=== PATIENT | male | born 1955 | race Caucasian/White ===

== ENCOUNTER 2017-03-01 12:33 | Emergency (ER) | payer OTHER, MEDICAID ==
[~2017-03-01] VITALS: Ht 177.8 cm; Wt 63.0 kg
[~2017-03-01 12:33] MED LIST: GABA-532 PO; GABA300C PO; HYDR-569 PO
[2017-03-01] MEDS ORDERED: OXYC-145 PO (12:54)
[2017-03-01] MEDS ORDERED: PENI500T2 PO (12:54)
[2017-03-01] MEDS ORDERED: oxyCODONE/APAP 10/325mg tablet PO ONE (12:55)
[2017-03-01] MEDS ORDERED: penicillin V potassium 500mg tablet PO ONE (12:55)
[2017-03-01 13:04] VITALS: BP 125/72
== END 2017-03-01 13:05 | disposition home or self-care (01) ==
LOC: ER 12:33
DX: K08.89 Other specified disorders of teeth and supporting structures (principal); G89.29 Other chronic pain; Z85.47 Personal history of malignant neoplasm of testis; Z88.6 Allergy status to analgesic agent; Z87.11 Personal history of peptic ulcer disease; Z98.890 Other specified postprocedural states
CPT/HCPCS: 99283

== ENCOUNTER 2020-11-03 16:14 | Emergency (ER) | payer OTHER, MEDICAID ==
[~2020-11-03] VITALS: Ht 177.8 cm; Wt 63.0 kg
[~2020-11-03 16:14] MED LIST changes: +HYDR-4383 PO; -HYDR-569 PO; +OXYC-145 PO
[2020-11-03 16:55] LABS: BASOPHILS % (AUTO) 0.5 % (0-1); EOSINOPHILS % (AUTO) 0.3 % (0-6); HEMOGLOBIN 14.6 g/dl (14.0-17.9); LYMPHOCYTES # (AUTO) 1.3 X10'3 (1.1-4.8); LYMPHOCYTES % (AUTO) 15.9 % (21-51); MEAN CORPUSCULAR HEMOGLOBIN 35.8 PG (27.0-31.0); MEAN CORPUSCULAR HGB CONC 32.4 g/dL (33.0-36.5); MEAN CORPUSCULAR VOLUME 110.4 FL (78-98); MEAN PLATELET VOLUME 8.3 FL (7.4-10.4); MONOCYTES # (AUTO) 0.4 X10'3 (0-0.9); MONOCYTES % (AUTO) 5.1 % (2-12); NEUTROPHILS # (AUTO) 6.3 X10'3 (1.8-7.7); NEUTROPHILS % (AUTO) 78.2 % (42-75); PLATELET COUNT 215 X10'3 (140-440); RED BLOOD COUNT 4.08 X10'6 (4.70-6.10); RED CELL DISTRIBUTION WIDTH 17.1 % (11.5-14.5); WHITE BLOOD COUNT 8.1 X10'3 (4.5-11.0)
[2020-11-03] MEDS ORDERED: HYDROcodone/acetaminophen 5mg/325mg tablet PO ONE (17:00)
[2020-11-03 17:21] LABS: ALANINE AMINOTRANSFERASE 25 U/L (12-78); ALBUMIN 3.4 G/DL (3.4-5.0); ALBUMIN/GLOBULIN RATIO 0.9 (1.1-1.5); ALKALINE PHOSPHATASE 141 IU/L (46-116); ANION GAP 20 (8-16); ASPARTATE AMINO TRANSFERASE 47 U/L (10-37); BILIRUBIN,TOTAL 0.3 MG/DL (0.1-1.0); BLOOD UREA NITROGEN 15 MG/DL (7-18); BUN/CREATININE RATIO 11.8 (5.4-32.0); CALCIUM 8.7 MG/DL (8.5-10.1); CHLORIDE 106 MMOL/L (99-107); CREATININE 1.27 MG/DL (0.60-1.10); GLUCOSE 164 MG/DL (70-104); SODIUM 143 MMOL/L (135-145); TOTAL CARBON DIOXIDE 17.4 MMOL/L (24-32); TOTAL PROTEIN 7.4 G/DL (6.4-8.2); eGFR 57 ML/MIN
[2020-11-03] MEDS ORDERED: LORazepam 2 mg/ml vial ONE (17:41)
--- NOTE | 2020-11-03 17:42 | NUR ---
Called to pt's bedside, pt actively seizing. Lasting approx 20 seconds before pt became what appears to be postictal.
[2020-11-03 17:52] VITALS: BP 133/77
[2020-11-03] MEDS ORDERED: levetiracetam inj 1,000 MG in normal saline 100ml IV soln 90 ML IV ONE (18:45)
[2020-11-03] MEDS ORDERED: morphine 4 MG/ML inj SYRINge IV ONE (18:45)
== END 2020-11-03 19:18 | disposition home or self-care (01) ==
LOC: ER 16:15
DX: R56.9 Unspecified convulsions (principal); G89.29 Other chronic pain; Z87.11 Personal history of peptic ulcer disease; Z85.47 Personal history of malignant neoplasm of testis; Z98.890 Other specified postprocedural states; Z72.89 Other problems related to lifestyle; Z79.899 Other long term (current) drug therapy; Z88.8 Allergy status to other drugs, medicaments and biological substances
CPT/HCPCS: 71045; 80053; 85025; 93005; 96365; 96375; 99285; J1953; J2060; J2270; 96374